=== PATIENT | male | born 1965 | race Caucasian/White ===

== ENCOUNTER 2016-12-25 08:26 | Emergency (ER) | payer MEDICAID ==
[~2016-12-25] VITALS: Wt 70.0 kg
[~2016-12-25 08:26] MED LIST: CIPR500T4 PO; DOCU-144 PO; HYDR-3498 PO; IBUP-1542 PO; METR500T PO; ORPH100T PO
[2016-12-25] MEDS ORDERED: SODI126M NASAL (09:10)
[2016-12-25] MEDS ORDERED: IBUP-1542 PO (09:10)
--- NOTE | 2016-12-25 09:14 | ERD ---
ER Documentation Chief Complaint Date/Time DATE: 12/25/16 TIME: 09:[address] for the past few days intermittent fevers. HPI 51-year-old male complaining of sore throat for 2 days. He has slight cough and nasal congestion. Able to eat and drink. He took Advil for pain, last dose was 4 AM. Denies fever. ROS All systems reviewed and are negative except as per history of present illness. Medications Home Meds Active Scripts Ibuprofen* (Motrin*) 600 Mg Tab, 600 MG PO Q6H Y for PAIN AND OR ELEVATED TEMP, #30 TAB Prov:SEFERINO PATHAK. ROHITH 12/25/16 Sodium Chloride (Saline Nasal Mist) 126 Ml Mist, 2 SPRAY NASAL Q2H Y for NASAL CONGESTION, #1 BOTTLE Prov:SEFERINO PATHAK NP 12/25/16 Orphenadrine Citrate (Norflex) 100 Mg Tablet.sa, 100 MG PO BID for 7 Days, TAB.SA Prov:SWETA BAL 06/04/16 Ibuprofen* (Ibuprofen*) 600 Mg Tablet, 600 MG PO Q6 for 7 Days, TAB Prov:SWETA BAL 06/04/16 Docusate Sodium* (Colace*) 100 Mg Capsule, 100 MG PO TID, #20 Prov:DORETHA HOUSTON PA-C 08/12/15 Hydrocodone Bit-Acetaminophen* ([place]*) 5-325 Mg Tab, 1 TAB PO Q6 Y for PAIN, # 14 TAB Prov:DORETHA HOUSTON PA-C 08/12/15 Hydrocodone Bit-Acetaminophen* ([place]*) 5-325 Mg Tab, 1 TAB PO Q6 Y for PAIN, # 20 TAB Prov:KARAN LINDSAY NP 07/12/15 Ciprofloxacin Hcl* (Ciprofloxacin Hcl*) 500 Mg Tablet, 500 MG PO BID for 10 Days , TAB Prov:KARAN LINDSAY NP 07/12/15 Metronidazole* (Flagyl*) 500 Mg Tablet, 500 MG PO TID for 10 Days, TAB Prov:KARAN LINDSAY NP 07/12/15 Allergies Allergies: Coded Allergies: No Known Drug Allergy (Verified Allergy, Mild, 06/04/16) PMhx/Soc Medical and Surgical Hx: pt denies Medical Hx History of Surgery: No Anesthesia Reaction: No Hx Neurological Disorder: No Hx Respiratory Disorders: No Hx Cardiac Disorders: No Hx Psychiatric Problems: No Hx Miscellaneous Medical Probl: No Hx Alcohol Use: No Hx Substance Use: No Hx Tobacco Use: No Smoking Status: Never smoker Physical Exam Vitals Vital Signs Date Time Temp Pulse Resp B/P Pulse Ox O2 Delivery O2 Flow Rate FiO2 12/25/16 08:34 98.6 66 21 154/85 98 Physical Exam General impression: Well-developed, well-nourished. Alert, oriented, in no acute distress Head: Normocephalic, atraumatic. Eyes: PERRL, EOM normal. Conjunctiva not injected. ENT: Nasal mucosa erythematous and swollen. Oral mucosa normal. Oropharynx mildly erythematous, no swelling or exudates. Neck: Supple, nontender. No lymphanopathy. No nuchal rigidity. Respiration: Normal respiratory effort. Lungs clear to auscultate bilaterally. No wheezes, rales or rhonchi. Cardiovascular: Regular rate and rhythm. No murmurs or extra heart sounds. Abdomen: Abdomen normal to inspection. Nontender. No masses or organomegaly. Bowel sounds normal. Neuro: Mental status normal, speech normal. APPLIQUE SEWER grossly intact. Skin: Normal turgor. No rash or lesions. Psych: Normal mood and affect. Procedures/MDM Patient is afebrile, in no respiratory distress. Lungs are clear to auscultate. I doubt that patient has pneumonia or bronchitis. Likely patient's symptoms are result of viral upper respiratory infection. No sign of strep pharyngitis. Patient appears well, stable for discharge and outpatient management. Medical decision making shared with patient and family. Education provided to patient and family. Patient and family expressed understanding of the plan. Medications on discharge: Saline nasal spray, ibuprofen. Follow-up: Primary care provider in 2-3 days or return to ED if worse. Departure Diagnosis: Primary Impression: URI (upper respiratory infection) URI type: acute nasopharyngitis (common cold) Qualified Code: J00 - Acute nasopharyngitis Condition: Stable Patient Instructions: Adult Self-Care for Colds Ref[facility] Usted se monterroso hecho un examen mdico de control que le indica que no est en germain condicin que requiera tratamiento urgente en el Departamento de Emergencia. Un estudio ms profundo y el tratamiento de zambrano condicin pueden esperar sin ningn riesgo hasta que usted sea atendida/o en el consultorio de zambrano mdico o germain cl sharona. Es responsabilidad suya arreglar germain radha para el seguimiento del steffi. MANEJO DE CONDICIONES NO URGENTES EN EL FUTURO 1) Si usted tiene un mdico de atencin primaria: Usted debera llamar a zambrano mdico de atencin primaria antes de venir al departamento de emergencia. Despus de las horas de consultorio, zambrano doctor o zambrano asociado/a est disponible por telfono. El mdico o enfermero de leelee en el servicio telefnico puede asesorarle por mitch medio para atender el problema, o steffi contrario se puede programar germain radha. 2) Si usted no tiene un mdico de atencin primaria: Llame al mdico o clnica de referencia que aparece abajo eda las horas de consultorio para hacer germain radha para que le vean. CLINICAS: [facility] [phone] [facility] [phone] [facility]. [facility] [phone] [facility] [facility] [phone] [facility]. [place] [id number] [phone] [facility]. [phone] [address] Additional Instructions: Llame al doctor MAANA y jayde germain RADHA PARA DENTRO DE 2-3 GUEVARA.Dgale a la secretaria que nosotros le instruimos hacer esta radha.Avise o llame si zambrano condicin se empeora antes de la radha. Regresa aqui si peor o no mejor. SEFERINO PATHAK NP Dec 25, 2016 09:14
== END 2016-12-25 09:29 | disposition home or self-care (01) ==
LOC: FTE 08:26
DX: J00 Acute nasopharyngitis [common cold] (principal)
CPT/HCPCS: 99283

== ENCOUNTER 2017-01-07 05:45 | Emergency (ER) | payer MEDICAID ==
[~2017-01-07] VITALS: Ht 167.6 cm; Wt 82.1 kg
[~2017-01-07 05:45] MED LIST changes: +SODI126M NASAL
[2017-01-07 05:47] VITALS: Ht 167.6 cm; Wt 82.1 kg
--- NOTE | 2017-01-07 06:45 | ERD ---
ER Documentation Chief Complaint Date/Time DATE: 01/07/17 TIME: 06:38 Chief Complaint sore throat for 15 days not getting better HPI The patient is a 51-year-old male here with 15 days of sore throat that comes and goes. He also reports a slight, non-bothersome cough productive of scant white sputum. He was seen here for same on 12/25/16 and was given Tylenol for his sore throat pain. He stated that he took the Tylenol as prescribed with good relief. He ran out of Tylenol and wishes more. He denies any international travel. Reports sick contacts in the home with same symptoms. Denies fever, chills, nausea, vomiting, diarrhea, chest pain, difficulty breathing, shortness of breath, flank pain, dysuria, headache, earache, difficulty swallowing, drooling, change in voice, neck soreness or stiffness, photophobia, dizziness, or lightheadedness. ROS All systems reviewed and are negative except as per history of present illness. Medications Home Meds Active Scripts Ibuprofen* (Motrin*) 600 Mg Tab, 600 MG PO Q8, #30 TAB Prov:SHIRA MCCARTHY NP 01/07/17 Acetaminophen* (Tylenol*) 325 Mg Tablet, 2 TAB PO Q6 Y for PAIN AND OR ELEVATED TEMP, #20 TAB Prov:SHIRA MCCARTHY NP 01/07/17 Ibuprofen* (Motrin*) 600 Mg Tab, 600 MG PO Q6H Y for PAIN AND OR ELEVATED TEMP, #30 TAB Prov:SEFERINO PATHAK. WELLNESS EDUCATOR 12/25/16 Sodium Chloride (Saline Nasal Mist) 126 Ml Mist, 2 SPRAY NASAL Q2H Y for NASAL CONGESTION, #1 BOTTLE Prov:SEFERINO PATHAK. WELLNESS EDUCATOR 12/25/16 Orphenadrine Citrate (Norflex) 100 Mg Tablet.sa, 100 MG PO BID for 7 Days, TAB.SA Prov:SWETA BAL 06/04/16 Ibuprofen* (Ibuprofen*) 600 Mg Tablet, 600 MG PO Q6 for 7 Days, TAB Prov:SWETA BAL 06/04/16 Docusate Sodium* (Colace*) 100 Mg Capsule, 100 MG PO TID, #20 Prov:DORETHA HOUSTON PA-C 08/12/15 Hydrocodone Bit-Acetaminophen* ([place]*) 5-325 Mg Tab, 1 TAB PO Q6 Y for PAIN, # 14 TAB Prov:DORETHA HOUSTON PA-C 08/12/15 Hydrocodone Bit-Acetaminophen* ([place]*) 5-325 Mg Tab, 1 TAB PO Q6 Y for PAIN, # 20 TAB Prov:KARAN LINDSAY NP 07/12/15 Ciprofloxacin Hcl* (Ciprofloxacin Hcl*) 500 Mg Tablet, 500 MG PO BID for 10 Days , TAB Prov:KARAN LINDSAY WELLNESS EDUCATOR 07/12/15 Metronidazole* (Flagyl*) 500 Mg Tablet, 500 MG PO TID for 10 Days, TAB Prov:KARAN LINDSAY WELLNESS EDUCATOR 07/12/15 Allergies Allergies: Coded Allergies: No Known Drug Allergy (Verified Allergy, Mild, 06/04/16) PMhx/Soc Medical and Surgical Hx: pt denies Medical Hx, pt denies Surgical Hx History of Surgery: No Anesthesia Reaction: No Hx Neurological Disorder: No Hx Respiratory Disorders: No Hx Cardiac Disorders: No Hx Psychiatric Problems: No Hx Miscellaneous Medical Probl: No Hx Alcohol Use: No Hx Substance Use: No Hx Tobacco Use: No Smoking Status: Never smoker Physical Exam Vitals Vital Signs Date Time Temp Pulse Resp B/P Pulse Ox O2 Delivery O2 Flow Rate FiO2 01/07/17 05:47 97.2 60 18 183/98 94 Physical Exam INITIAL VITAL SIGNS: Reviewed by me, afebrile, no tachycardia GENERAL: Alert. Well developed and well nourished. No respiratory distress. No acute distress. Nontoxic appearing. HEAD: Head is normocephalic. Atraumatic. EYES: EOMI. No scleral icterus. No conjunctival injection. No clear purulent drainage. ENT: External ears, nose, and mouth normal. Ear canals clear. Tympanic membranes pearly/kwon, without erythema/bulging/effusion. Nasal passages patent and without rhinorrhea. Tonsils +3 and with moderate erythema. No exudates. Airway patent. Uvula midline. Moist mucous membranes. NECK: Supple. Full range of motion. Trachea midline. No meningismus. No lymphadenopathy. RESPIRATORY: No tachypnea. Clear to auscultation bilaterally. No wheezing, rales , or rhonchi. CV: Regular rate and rhythm. No murmurs, rubs, or gallops ABDOMEN: Soft, non-distended, non-tender. No guarding. No rebound. No masses. Bowel sounds normal in all quadrants. BACK: No CVA tenderness. Full ROM. EXTREMITIES: No obvious deformity. No clubbing or cyanosis. No edema. SKIN: Warm and dry. No diaphoresis. No obvious rashes or lesions. NEUROLOGIC: Alert and oriented x 3. Appropriate. Face is symmetric. Speech is normal. Moves all extremities equally. Results 24 hrs Current Medications Medications (Trade) Dose Ordered Sig/Juan Route PRN Reason Start Time Stop Time Status Last Admin Dose Admin Dexamethasone (Decadron) 10 mg ONCE ONCE IM 01/07/17 07:00 01/07/17 07:01 DC 01/07/17 07:06 Procedures/MDM Nursing Notes Reviewed Previous Medical Records requested via [employer]. EMERGENCY DEPARTMENT COURSE / MEDICAL DECISION MAKING: The patient comes to the ED secondary to intermittent sore throat 15 days. Differential diagnosis upon initial evaluation includes but is not limited to: Bacterial pharyngitis, viral pharyngitis, viral syndrome, URI, pneumonia, sepsis , meningitis, mono, peritonsillar abscess, epiglottitis, and others. At this time, the patient's history of present illness and physical exam findings are most consistent with viral pharyngitis. He does not have any peritonsillar exudates, nor does he have any clinical evidence of peritonsillar abscess or epiglottitis. He does not have a raspy voice nor does he have difficulty swallowing. His uvula is midline and his airway is patent. Tonsils are symmetrical and +3. His breathing is even and unlabored. His lungs are clear to auscultation bilaterally. He does not have any lymphadenopathy, neck pain, neck soreness, or neck stiffness. He does not have a headache or photophobia. He is afebrile. As such, I have low suspicion at this time for bacterial pharyngitis, pneumonia, sepsis, meningitis, mono, peritonsillar abscess, epiglottitis, or any other serious cause of the patient's symptoms. Final impression: Pharyngitis, likely viral The patient was treated with Decadron 10 mg IM for sore throat and moderate tonsillar erythema. Based on patient's history of present illness and physical examination the decision was made to discharge. The patient was re-evaluated after ED treatment and stabilizing measures, and symptoms have improved. There is no evidence of life threatening injuries or illnesses at this time. The patient's repeat physical exam was benign. On re-examination, patient resting in no distress, stable vital signs, reports feeling better and safe for discharge with outpatient follow up with PMD in 1-2 days. Patient given return precautions. Patient verbalized understanding and agreed to return precautions. He will return immediately for new or worsening symptoms. He will get plenty of fluids and plenty of rest. He will perform good hand hygiene. He will gargle with warm saltwater. He will take his medications as prescribed. Patient's blood pressure was elevated but appears stable without evidence of hypertensive emergency, end organ damage, chest pain or shortness of breath. The patient was counseled about the risks of untreated hypertension and urged to pursue outpatient monitoring and therapy in 2-3 days with their primary care physician. Prescriptions Tylenol Ibuprofen SHIRA MCCARTHY NP Jan 07, 2017 06:45
[2017-01-07] MEDS ORDERED: DEXAMETHASONE 10 MG/ML 1 ML INJ IM ONE (07:00)
[2017-01-07] MEDS ORDERED: ACET325T33 PO (07:03)
[2017-01-07] MEDS ORDERED: IBUP-1542 PO (07:04)
== END 2017-01-07 07:26 | disposition home or self-care (01) ==
LOC: FTE 05:45
DX: J02.9 Acute pharyngitis, unspecified (principal)
CPT/HCPCS: 96372; J1100; Z7502

== ENCOUNTER 2017-01-09 05:48 | Emergency (ER) | payer MEDICAID ==
[~2017-01-09] VITALS: Ht 162.6 cm; Wt 81.8 kg
[~2017-01-09 05:48] MED LIST changes: +ACET325T33 PO
[2017-01-09 05:57] VITALS: Ht 162.6 cm; Wt 81.8 kg
[2017-01-09] MEDS ORDERED: GLYCERIN (ADULT) SUPP PR ONE (07:00)
--- NOTE | 2017-01-09 08:02 | RADRPT ---
PROCEDURE: XR Abdomen. CLINICAL INDICATION: Abdominal pain TECHNIQUE: Two views of the abdomen are available for review. COMPARISON: 01/18/2014 FINDINGS: The bowel gas pattern is normal. There is no evidence of obstruction. A small normal amount of stool is seen within the right colon. There is no evidence for significant constipation. There are no ab normal calcifications overlying the urinary tracts. The osseous structures are remarkable for degene rative spondylosis of the spine. IMPRESSION: 1. Unremarkable abdomen x-ray series. 2. No evidence for significant constipation. RPTAT: PP .Abelardo Heath MD, Date Time Electronically viewed and signed by .Abelardo Heath MD, on 01/09/2017 08:02 .B/
[2017-01-09] MEDS ORDERED: GLYC1SUP92 PR (08:10)
[2017-01-09] MEDS ORDERED: POLY17PO6 PO (08:10)
--- NOTE | 2017-01-09 08:46 | ERD ---
DATE OF SERVICE: HISTORY OF PRESENT ILLNESS: The patient is a 51-year-old male coming in complaining of decreased jasen wel movements and constipation for the last 2 days. He states he has had this in the past and it monterroso s been constipation. He has not taken medications for the symptoms. He is unsure if he has been pa ssing gas. He describes some generalized abdominal pain. He denies any abdominal surgery. No vomi ting, no fevers, no back pain, no testicular pain, no change in urination. PAST MEDICAL HISTORY: Denies medical problems. ALLERGIES TO MEDICATIONS: Denies. SURGICAL HISTORY: Denies. SOCIAL HISTORY: Denies. REVIEW OF SYSTEMS: A 12-point review of systems was done. Refer to HPI for positives, all other sy stems negative. PHYSICAL EXAMINATION VITAL SIGNS: Temperature is 98.7, pulse 60, blood pressure is 156/92, respiratory rate 16, O2 sat 9 6% on room air. Pain intensity is 7/10. GENERAL: The patient is well-appearing, well-nourished, no acute distress. HEART: Regular rate and rhythm. No murmurs, clicks, rubs or gallops. No S3 or S4. CHEST: Clear to auscultation bilaterally. There are no rales, wheezes or rhonchi. HEENT: Atraumatic. Conjunctivae are pink. Pupils equal, round, and reactive to light. There is no s cleral icterus. Tympanic membranes clear bilaterally. Oropharynx clear. No nystagmus or photophobia . ABDOMEN: Soft, nontender and nondistended. Good bowel sounds. No rebound or guarding. No gross lee tonitis. No gross organomegaly or masses. No Jacobs sign or McBurney point tenderness. SKIN: There is no apparent rash or petechia. The skin is warm and dry. BACK: No midline or flank tenderness. EMERGENCY ROOM COURSE: The patient had a 1-view KUB done in the ER which showed unremarkable abdomi nal x-rays. No evidence for significant constipation. Patient was given a Fleets enema in the ER. DIAGNOSIS: Constipation. MEDICAL DECISION MAKING: I have low suspicion for small-bowel obstruction or acute abdominal emerge ncy. Patient's exam is nonconcerning. The patient is nontoxic appearing. I have low suspicion for nephrolithiasis. All other questions answered at time of discharge. Discharge summary given at th e time of departure. Patient was given MiraLax and glycerin suppositories for symptoms. Dictated By: NOAH THOMSON for PRISCILLA OROZCO/АНДРЕЙ Conf#: [id number] DID#: [id number]
== END 2017-01-09 08:25 | disposition home or self-care (01) ==
LOC: FTE 05:48
DX: K59.00 Constipation, unspecified (principal)
CPT/HCPCS: 74000; Z7502; Z7610

== ENCOUNTER 2017-01-10 19:06 | Emergency (ER) | payer MEDICAID ==
[~2017-01-10] VITALS: Ht 167.6 cm; Wt 80.3 kg
[~2017-01-10 19:06] MED LIST changes: +GLYC1SUP92 PR; +POLY17PO6 PO
[2017-01-10 19:20] VITALS: Ht 167.6 cm; Wt 80.3 kg
--- NOTE | 2017-01-10 21:11 | ERA ---
ER Documentation Chief Complaint Date/Time DATE: 01/10/17 TIME: 21:11 Chief Complaint diffuse abd pain x 3 days w/ fever, seen here 3 days ago same c/o HPI The patient is a 51-year-old male, presenting to the ER because of diffuse abdominal intermittently for 7 days, worse for the last 3 days. He is also complaining of subjective fever, nasal congestion, nasal discharge, sore throat , general body pain. He already had 2 visits to the ER on January 07 and January 09, 2017. The abdominal pain is 8/10, worse with constipation and dysuria. He is currently taking antibiotic for unclear reason. He denies chills, neck pain, chest pain, dyspnea. The abdominal pain is diffuse. He complains of nausea and vomiting mostly mucus. He does not smoke nor drink Past medical/ surgical history: None ROS All systems reviewed and are negative except as per history of present illness. Medications Home Meds Active Scripts Polyethylene Glycol* (Miralax*) 17 Gm Powd.pack, 17 GM PO DAILY, #7 Prov:GAURAV CASANOVA MD 01/11/17 Ibuprofen* (Motrin*) 600 Mg Tab, 600 MG PO Q6H Y for PAIN AND OR ELEVATED TEMP, #30 TAB Prov:GAURAV CASANOVA MD 01/11/17 Oseltamivir Phosphate* (Tamiflu*) 75 Mg Capsule, 75 MG PO BID for 5 Days, CAP Prov:GAURAV CASANOVA MD 01/11/17 Discontinued Scripts Glycerin* (Glycerin (Adult)*) 1 Each Supp.rect, 1 EACH CO DAILY Y for CONSTIPATION, #30 SUPP.RECT Prov:AMY VICK PA-C 01/09/17 Polyethylene Glycol* (Miralax*) 17 Gm Powd.pack, 17 GM PO DAILY, #7 Prov:AMY VICK PA-C 01/09/17 Ibuprofen* (Motrin*) 600 Mg Tab, 600 MG PO Q8, #30 TAB Prov:SHIRA MCCARTHY, AUTO DRIVER 01/07/17 Acetaminophen* (Tylenol*) 325 Mg Tablet, 2 TAB PO Q6 Y for PAIN AND OR ELEVATED TEMP, #20 TAB Prov:SHIRA MCCARTHY, AUTO DRIVER 01/07/17 Ibuprofen* (Motrin*) 600 Mg Tab, 600 MG PO Q6H Y for PAIN AND OR ELEVATED TEMP, #30 TAB Prov:SEFERINO PATHAK. AUTO DRIVER 12/25/16 Sodium Chloride (Saline Nasal Mist) 126 Ml Mist, 2 SPRAY NASAL Q2H Y for NASAL CONGESTION, #1 BOTTLE Prov:SEFERINO PATHAK. ROHITH 12/25/16 Orphenadrine Citrate (Norflex) 100 Mg Tablet.sa, 100 MG PO BID for 7 Days, TAB.SA Prov:SWETA BAL 06/04/16 Ibuprofen* (Ibuprofen*) 600 Mg Tablet, 600 MG PO Q6 for 7 Days, TAB Prov:SWETA BAL 06/04/16 Docusate Sodium* (Colace*) 100 Mg Capsule, 100 MG PO TID, #20 Prov:DORETHA HOUSTON PA-C 08/12/15 Hydrocodone Bit-Acetaminophen* (Garrison*) 5-325 Mg Tab, 1 TAB PO Q6 Y for PAIN, # 14 TAB Prov:DORETHA HOUSTON PA-C 08/12/15 Hydrocodone Bit-Acetaminophen* (Garrison*) 5-325 Mg Tab, 1 TAB PO Q6 Y for PAIN, # 20 TAB Prov:KARAN LINDSAY NP 07/12/15 Ciprofloxacin Hcl* (Ciprofloxacin Hcl*) 500 Mg Tablet, 500 MG PO BID for 10 Days , TAB Prov:KARAN LINDSAY NP 07/12/15 Metronidazole* (Flagyl*) 500 Mg Tablet, 500 MG PO TID for 10 Days, TAB Prov:KARAN LINDSAY NP 07/12/15 Allergies Allergies: Coded Allergies: No Known Drug Allergy (Verified Allergy, Mild, 01/10/17) PMhx/Soc History of Surgery: No Anesthesia Reaction: No Hx Neurological Disorder: No Hx Respiratory Disorders: No Hx Cardiac Disorders: No Hx Psychiatric Problems: No Hx Miscellaneous Medical Probl: No Hx Alcohol Use: No Hx Substance Use: No Hx Tobacco Use: No Physical Exam Vitals Vital Signs Date Time Temp Pulse Resp B/P Pulse Ox O2 Delivery O2 Flow Rate FiO2 01/11/17 00:20 68 18 114/69 97 Room Air 01/10/17 22:37 99.5 71 17 128/97 96 Room Air 01/10/17 21:13 102.0 01/10/17 19:20 102.4 94 20 190/103 97 Physical Exam Const: No acute distress. Head: Atraumatic. Eyes: Normal Conjunctiva. ENT: Normal External Ears, Nose and Mouth. Neck: Full range of motion. No meningismus. Resp: Clear to auscultation bilaterally. Cardio: Regular rate and rhythm, no murmurs. Abd: Soft, non distended, normal bowel sounds, diffuse and moderate abdominal tenderness, more tenderness at the right lower quadrant. No rigidity , rebound or CVA tenderness Skin: No petechiae or rashes. Back: No midline or flank tenderness. Ext: No cyanosis, or edema. Neur: Awake and alert. No focal deficit Psych: Normal Mood and Affect. Result Diagram: 01/10/17212901/10/172129 Results 24 hrs Laboratory Tests Test 01/10/17 21:30 01/10/17 22:38 01/10/17 23:54 Activated Partial Thromboplast Time 35.6Sec Alanine Aminotransferase (ALT/SGPT) 69IU/L Albumin 4.3g/dl Albumin/Globulin Ratio 1.10 Alkaline Phosphatase 123IU/L Anion Gap 17 Aspartate Amino Transf (AST/SGOT) 87IU/L Basophils # 0.010^3/ul Basophils % 0.3% Blood Urea Nitrogen 10mg/dl Calcium Level 8.9mg/dl Carbon Dioxide Level 25mmol/L Chloride Level 100mmol/L Creatinine 0.80mg/dl Direct Bilirubin 0.00mg/dl Eosinophils # 0.010^3/ul Eosinophils % 0.3% Globulin 3.90g/dl Glucose Level 122mg/dl Hematocrit 43.9% Hemoglobin 15.3g/dl INR International Normalized Ratio 1.07 Indirect Bilirubin 0.8mg/dl Lactic Acid Level 1.0mmol/L 0.7mmol/L Lipase 48U/L Lymphocytes # 1.010^3/ul Lymphocytes % 12.6% Mean Corpuscular Hemoglobin 29.5pg Mean Corpuscular Hemoglobin Concent 34.9g/dl Mean Corpuscular Volume 84.7fl Mean Platelet Volume 10.3fl Monocytes # 0.610^3/ul Monocytes % 8.2% Neutrophils # 6.010^3/ul Neutrophils % 78.3% Nucleated Red Blood Cells # 0.010^3/ul Nucleated Red Blood Cells % 0.0/100WBC Platelet Count 82968^3/UL Potassium Level 4.1mmol/L Prothrombin Time 13.9Sec Prothrombin Time Ratio 1.1 Red Blood Count 5.1810^6/ul Red Cell Distribution Width 13.0% Sodium Level 138mmol/L Total Bilirubin 0.8mg/dl Total Protein 8.2g/dl Troponin I < 0.012ng/ml White Blood Count 7.610^3/ul Bedside Urine Blood 1+ Bedside Urine Glucose (UA) Negative Bedside Urine Ketones (LAB) 2+ Bedside Urine Leukocyte Esterase (L Negative Bedside Urine Nitrite (LAB) Negative Bedside Urine Protein (LAB) 3+ Bedside Urine pH (LAB) 6.5 Current Medications Medications (Trade) Dose Ordered Sig/Juan Route PRN Reason Start Time Stop Time Status Last Admin Dose Admin Acetaminophen (Tylenol Supp) 650 mg ONCE ONCE CO 01/10/17 21:30 01/10/17 21:31 DC 01/10/17 21:43 Morphine Sulfate (morphine) 4 mg ONCE STAT IV 01/10/17 21:18 01/10/17 21:20 DC 01/10/17 21:43 Ondansetron HCl (Zofran Inj) 4 mg ONCE STAT IV 01/10/17 21:18 01/10/17 21:20 DC 01/10/17 21:43 Procedures/[place] [id number] Radiology Main Line: [phone] DIAGNOSTIC IMAGING REPORT Patient: ARVIN CASTILLO : 1965 Age: 51 Sex: M MR #: [id number] DOS: 01/10/178 Ordering MD: GAURAV CASANOVA MD Location: E/R Room/Bed: PROCEDURE: XR Chest AP portable CLINICAL INDICATION: Possible sepsis TECHNIQUE: An AP portable radiograph of the chest was submitted. COMPARISON: 01/16/2014 FINDINGS: Support Hardware: None Cardiovascular: The cardiovascular silhouette appears unremarkable. Lung Gutierrez: The lung gutierrez appear clear with no nodule, alveolar infiltrate, for a interstitial prominence evident. Pleural Spaces: No pneumothorax or pleural effusion is identified. Osseous Structures: Mild degenerative spine changes are noted. Soft Tissues: The soft tissues appear generous. IMPRESSION: Stable and unremarkable chest. Physician Natalia Date Time Electronically viewed and signed by Physician Natalia on 01/10/2017 21:46 RH/ CC: GAURAV CASANOVA MD [place] [id number] Radiology Main Line: [phone] DIAGNOSTIC IMAGING REPORT Patient: ARVIN CASTILLO : 1965 Age: 51 Sex: M MR #: [id number] DOS: 01/10/172117 Ordering MD: GAURAV CASANOVA MD Location: E/R Room/Bed: PROCEDURE: CT abdomen and pelvis without intravenous contrast. CLINICAL INDICATION: Pain. TECHNIQUE: CT of the abdomen/pelvis was performed utilizing axial images with reconstructions in sagittal and coronal planes. The administered radiation dose is CTDI 15.2 mGy, DLP 855 mGy-cm. COMPARISON: 08/12/2015 FINDINGS: Visualized Chest: The visualized lung bases are clear. Abdomen: The spleen, pancreas, gallbladder,and adrenal glands are unremarkable. The liver is markedly, diffusely decreased in attenuation, compatible with hepatic steatosis. The kidneys are without hydronephrosis. No definite urinary calculi are seen. There is no evidence of bowel obstruction. The appendix is normal. No intra- abdominal free air is seen. Diverticula are noted along the sigmoid colon without evidence of diverticulitis. There is no evidence of intra-abdominal adenopathy or free fluid. Pelvis: A moderate size fat-containing right inguinal hernia. The urinary bladder and prostate are unremarkable. There is no pelvic adenopathy or free fluid. Osseous structures: Unremarkable. IMPRESSION: No acute findings. Marked hepatic steatosis. Sigmoid colonic diverticulosis. Moderate sized fat-containing right inguinal hernia. RPTAT: HIKT .Bentley Ramos MD, Date Time Electronically viewed and signed by .Bentley Ramos MD, MD on 01/10/2017 23:06 .T/ CC: GAURAV CASANOVA MD EKG: Read by emergency physician Rate/Rhythm: Normal Sinus Rhythm 86 beats/min QRS, ST, T-waves: No ST elevation, no T inversion, nonspecific T abnormality Impression: Abnormal EKG MEDICAL MAKING DECISION: The patient is a 51-year-old male, presenting with influenza-like illness, abdominal pain of unclear etiology, most likely due to constipation and right inguinal hernia. The differential diagnoses considered include but are not limited to incarcerated/strangulated inguinal hernia , pneumonia, cystitis, cholelithiasis, cholecystitis, cystitis, pancreatitis, hepatitis, gastritis, peptic ulcer disease, gastric ulcer, appendicitis, diverticulitis, cholangitis, choledocholithiasis, partial small bowel obstruction. Departure Diagnosis: Primary Impression: Abdominal pain Additional Impressions: Influenza-like illness Constipation Right inguinal hernia Condition: Good Comments He was discharged with Tamiflu, Motrin, MiraLAX and advised to return in 8 hours for reevaluation, sooner if any concern The patient's blood pressure was elevated (>120/80) but appears stable without evidence of hypertension emergency or urgency. The patient was counseled about the risks of hypertension and urged to pursue outpatient monitoring and therapy within a week with their primary care physician. GAURAV CASANOVA MD Jan 10, 2017 21:11
[2017-01-10] MEDS ORDERED: ONDANSETRON 4 MG INJ IV STA (21:18)
[2017-01-10] MEDS ORDERED: morphine 4 MG/ML VIAL IV STA (21:18)
[2017-01-10] MEDS ORDERED: ACETAMINOPHEN 650 MG SUPP PR ONE (21:30)
[2017-01-10 21:44] LABS: ADD SCAN DIFF NO
[2017-01-10 21:46] LABS: BASOPHILS % 0.3 % (0.0-2.0); EOSINOPHILS % 0.3 % (0.0-7.0); HEMATOCRIT 43.9 % (42.0-52.0); HEMOGLOBIN 15.3 g/dl (14.0-18.0); LYMPHOCYTES % 12.6 % (15.0-51.0); MEAN CORPUSCULAR HEMOGLOBIN 29.5 pg (29.0-33.0); MEAN CORPUSCULAR HGB CONC 34.9 g/dl (32.0-37.0); MEAN CORPUSCULAR VOLUME 84.7 fl (82.0-101.0); MEAN PLATELET VOLUME 10.3 fl (7.4-10.4); MONOCYTE # 0.6 10^3/ul (0.3-0.9); MONOCYTES % 8.2 % (0.0-11.0); NEUTROPHILS % 78.3 % (39.0-77.0); PLATELET COUNT 234 10^3/UL (140-415); RED BLOOD COUNT 5.18 10^6/ul (4.70-6.10); WHITE BLOOD COUNT 7.6 10^3/ul (4.8-10.8)
--- NOTE | 2017-01-10 21:46 | RADRPT ---
PROCEDURE: XR Chest AP portable CLINICAL INDICATION: Possible sepsis TECHNIQUE: An AP portable radiograph of the chest was submitted. COMPARISON: 01/16/2014 FINDINGS: Support Hardware: None Cardiovascular: The cardiovascular silhouette appears unremarkable. Lung Guevara: The lung guevara appear clear with no nodule, alveolar infiltrate, for a interstitial pr ominence evident. Pleural Spaces: No pneumothorax or pleural effusion is identified. Osseous Structures: Mild degenerative spine changes are noted. Soft Tissues: The soft tissues appear generous. IMPRESSION: Stable and unremarkable chest. Physician Natalia Date Time Electronically viewed and signed by Nadja York Physician on 01/10/2017 21:46 RH/
[2017-01-10 21:55] LABS: ALBUMIN 4.3 g/dl (3.3-4.9); CHLORIDE 100 mmol/L (97-110)
[2017-01-10 21:56] LABS: POTASSIUM 4.1 mmol/L (3.5-5.1); SODIUM 138 mmol/L (135-144)
[2017-01-10 21:58] LABS: ANION GAP 17 (8-16); ASPARTATE AMINO TRANSFERASE 87 IU/L (15-46); BILIRUBIN,INDIRECT 0.8 mg/dl (0-1.1); BILIRUBIN,TOTAL 0.8 mg/dl (0.2-1.3); CARBON DIOXIDE 25 mmol/L (21-31); TOTAL PROTEIN 8.2 g/dl (6.1-8.1)
[2017-01-10 21:59] LABS: ALANINE AMINOTRANSFERASE 69 IU/L (13-69); ALKALINE PHOSPHATASE 123 IU/L (42-121); BLOOD UREA NITROGEN 10 mg/dl (7-20); CALCIUM 8.9 mg/dl (8.4-10.2); GLUCOSE 122 mg/dl (70-220)
[2017-01-10 22:10] LABS: INR 1.07; PROTIME 13.9 Sec (12.2-14.2); PT RATIO 1.1
[2017-01-10 22:11] LABS: PARTIAL THROMBOPLASTIN TIME 35.6 Sec (25.0-35.0); TROPONIN-I < 0.012 ng/ml (0.00-0.12)
[2017-01-10 22:37] VITALS: TEMP 99.5
[2017-01-10 22:37] LABS: URINE BLOOD (Dip) POC 1+ (NEGATIVE)
--- NOTE | 2017-01-10 23:07 | RADRPT ---
PROCEDURE: CT abdomen and pelvis without intravenous contrast. CLINICAL INDICATION: Pain. TECHNIQUE: CT of the abdomen/pelvis was performed utilizing axial images with reconstructions in s agittal and coronal planes. The administered radiation dose is CTDI 15.2 mGy, DLP 855 mGy-cm. COMPARISON: 08/12/2015 FINDINGS: Visualized Chest: The visualized lung bases are clear. Abdomen: The spleen, pancreas, gallbladder,and adrenal glands are unremarkable. The liver is markedly, dif fusely decreased in attenuation, compatible with hepatic steatosis. The kidneys are without hydronephrosis. No definite urinary calculi are seen. There is no evidence of bowel obstruction. The appendix is normal. No intra-abdominal free air is seen. Diverticula are noted along the sigmoid colon without evidence of diverticulitis. There is no evidence of intra-abdominal adenopathy or free fluid. Pelvis: A moderate size fat-containing right inguinal hernia. The urinary bladder and prostate are unremark able. There is no pelvic adenopathy or free fluid. Osseous structures: Unremarkable. IMPRESSION: No acute findings. Marked hepatic steatosis. Sigmoid colonic diverticulosis. Moderate sized fat-containing right inguinal hernia. RPTAT: HIKT .Bentley Ramos MD, MD Date Time Electronically viewed and signed by .Bentley Ramos MD, MD on 01/10/2017 23:06 .T/
[2017-01-11] MEDS ORDERED: POLY17PO6 PO (00:12)
[2017-01-11] MEDS ORDERED: OSLT75C PO (00:12)
[2017-01-11] MEDS ORDERED: IBUP-1542 PO (00:12)
[2017-01-11 00:20] VITALS: BP 114/69; PULSE 68; RESP 18
== END 2017-01-11 00:21 | disposition home or self-care (01) ==
LOC: E/R 19:06
DX: R10.31 Right lower quadrant pain (principal); R50.9 Fever, unspecified; R09.81 Nasal congestion; J02.9 Acute pharyngitis, unspecified; K59.00 Constipation, unspecified; K40.90 Unilateral inguinal hernia, without obstruction or gangrene, not specified as recurrent; R11.2 Nausea with vomiting, unspecified
CPT/HCPCS: 36415; 71010; 74176; 80053; 81003; 83605; 83690; 84484; 85025; 85610; 85730; 87040; 87086; 93005; 96374; 96375; J2270; J2405; Z7502; Z7610

== ENCOUNTER 2017-03-30 16:25 | Emergency (ER) | payer MEDICAID ==
[~2017-03-30] VITALS: Ht 165.1 cm; Wt 78.0 kg
[~2017-03-30 16:25] MED LIST changes: -ACET325T33 PO; -CIPR500T4 PO; -DOCU-144 PO; -GLYC1SUP92 PR; -HYDR-3498 PO; -METR500T PO; -ORPH100T PO; +OSLT75C PO; -SODI126M NASAL
[2017-03-30 16:29] VITALS: Ht 165.1 cm; Wt 78.0 kg
[2017-03-30 17:41] LABS: URINE BLOOD (Dip) POC Negative (NEGATIVE)
[2017-03-30 17:47] LABS: ADD UMIC YES; URINE BILIRUBIN (Dip) NEGATIVE (NEGATIVE); URINE BLOOD (Dip) NEGATIVE (NEGATIVE); URINE COLOR LT. YELLOW (YELLOW); URINE GLUCOSE (Dip) NEGATIVE (NEGATIVE); URINE KETONES (Dip) NEGATIVE (NEGATIVE); URINE LEUKOCYTE ESTERASE (Dip) NEGATIVE (NEGATIVE); URINE NITRITE (Dip) NEGATIVE (NEGATIVE); URINE TOTAL PROTEIN (Dip) 2+ (NEGATIVE); URINE UROBILINOGEN (Dip) 0.2 E.U./dL (0.1-1.0)
[2017-03-30 18:10] LABS: MUCUS,URINE FEW; URINE RBCS NONE SEEN /HPF (0)
--- NOTE | 2017-03-30 18:47 | ERD ---
ER Documentation Chief Complaint Date/Time DATE: 03/30/17 TIME: 18:29 Chief Complaint PAINFUL URINATION X 2 WEEKS HPI This pleasant Malian-speaking male presents to the emergency department with painful urination 2 weeks. Patient reports that he has difficulty initiating his urine stream, and that urine dribbles after he has completed voiding. Patient denies any penile discharge, or testicular pain. Patient denies hematuria, fever, or history of benign prostate hypertrophy. Patient is in a monogamous relationship, denies extramarital affairs. ROS All systems reviewed and are negative except as per history of present illness. Medications Home Meds Active Scripts Ciprofloxacin Hcl* (Ciprofloxacin Hcl*) 500 Mg Tablet, 500 MG PO BID for 7 Days , TAB Prov:MINNIE,EROS 03/30/17 Polyethylene Glycol* (Miralax*) 17 Gm Powd.pack, 17 GM PO DAILY, #7 Prov:GAURAV CASANOVA MD 01/11/17 Ibuprofen* (Motrin*) 600 Mg Tab, 600 MG PO Q6H Y for PAIN AND OR ELEVATED TEMP, #30 TAB Prov:GAURAV CASANOVA MD 01/11/17 Oseltamivir Phosphate* (Tamiflu*) 75 Mg Capsule, 75 MG PO BID for 5 Days, CAP Prov:GAURAV CASANOVA MD 01/11/17 Allergies Allergies: Coded Allergies: No Known Drug Allergy (Verified Allergy, Mild, 01/10/17) PMhx/Soc Medical and Surgical Hx: pt denies Medical Hx, pt denies Surgical Hx History of Surgery: No Anesthesia Reaction: No Hx Neurological Disorder: No Hx Respiratory Disorders: No Hx Cardiac Disorders: No Hx Psychiatric Problems: No Hx Miscellaneous Medical Probl: No Hx Alcohol Use: No Hx Substance Use: No Hx Tobacco Use: No Smoking Status: Never smoker Physical Exam Vitals Vitals stable, triage notes reviewed Physical Exam Const: No acute distress Head: Atraumatic Eyes: Normal Conjunctiva, PERRLA, EOMI ENT: Normal External Ears, Nose and Mouth. Mucous membranes moist Neck: Full range of motion.. Resp: Chest rises and falls symmetrically, clear to auscultation bilaterally, no respiratory distress Cardio: Abd: Soft, non tender, non distended. No bladder tenderness, no CVA tenderness Skin: Back: No midline or flank tenderness Ext: Neur: Awake and alert Psych: Normal Mood and Affect Results 24 hrs Laboratory Tests Test 03/30/17 17:38 03/30/17 17:42 Urine Color LT. YELLOW Urine Clarity CLEAR Urine pH 6.0 Urine Specific [place] >=1.030 Urine Ketones NEGATIVE Urine Nitrite NEGATIVE Urine Bilirubin NEGATIVE Urine Urobilinogen 0.2 E.U./dL Urine Leukocyte Esterase NEGATIVE Urine Microscopic RBC NONE SEEN/HPF Urine Microscopic WBC 0-2/HPF Urine Mucus FEW Urine Hemoglobin NEGATIVE Urine Glucose NEGATIVE% Urine Total Protein 2+ Chlamydia trachomatis RNA (TMA) NOT DETECTED Chlamydia/GC Comment SEE NOTE Neisseria gonorrhoeae RNA (TMA) NOT DETECTED Bedside Urine pH (LAB) 6.0 Bedside Urine Protein (LAB) 3+ Bedside Urine Glucose (UA) Negative Bedside Urine Ketones (LAB) Negative Bedside Urine Blood Negative Bedside Urine Nitrite (LAB) Negative Bedside Urine Leukocyte Esterase (L Negative Procedures/MDM This pleasant 52-year-old male patient reports 2 week history of painful urination, difficulty initiating urine stream and dribbling after urinating this complaint, patient denies any hematuria, penile discharge, or extramarital affairs. Patient denies fever, back pain, nausea or vomiting. Pyelonephritis, urinary tract infection suspected, urinalysis shows no evidence of infection, positive for proteinuria. Blood pressure 145 over 81, hypertension is unlikely because of proteinuria, glomeruli or damage is unlikely, dysuria likely from prostatitis, patient has no signs of sepsis, fever, chills, no evidence of obstruction, patient able to urinate freely while in emergency department. Patient will be treated with Cipro 500 mg twice daily 7 days, increase fluids, increase rest, return to emergency room for worsening of symptoms, inability to void, fever, hematuria, back pain. I feel the patient is stable for discharge and outpatient management by primary care physician. I have discussed results, examination findings, the treatment plan with the patient and family present prior to discharge. Indications for emergent reevaluation, side effects of medication were also discussed. All questions were answered. Patient verbalizes understanding and agrees with plan of care. Departure Diagnosis: Primary Impression: Dysuria Condition: Good Patient Instructions: Dysuria, Uncertain Cause (Adult) Additional Instructions: Thank you for for coming to [facility] for your care today. Please ask your nurse or provider if you have questions about your care today and do not leave until all your questions have been answered. Please use any medications given as directed and follow-up with your doctor (or the doctor you were referred to) in the next 2-3 days. If you do not have a primary care doctor you [place] [facility] [place] You may also use motrin and tylenol as needed for fever and/or pain unless instructed otherwise by your provider or nurse. Indications for more urgent follow-up have been discussed, but you may return to the Emergency Department at ANY time for any worrisome or worsening symptoms. If you have abdominal pain, please know that no test or exam you received is perfect and you should follow up within 8 hours for continued pain. If you had any imaging studies today, such as an X-Ray or CT Scan, these studies will be reviewed later by a radiologist. You will be called if there are important findings that were not identified today, so make sure the contact information you provided at registration is correct. If you received any narcotic pain control medicine today, such as Vicodin, Morphine or Dilaudid, your coordination and judgment may be affected for a number of hours. Please do not drive or operate heavy machinery, and you may want someone to assist you at home. If you were given a prescription for narcotic medication, be aware that it is very addictive- use sparingly and only if necessary. EROS HARTMAN March 30, 2017 18:43
[2017-03-30] MEDS ORDERED: CIPR500T4 PO (18:48)
[2017-03-30 19:03] VITALS: BP 123/75; PULSE 85; RESP 20; TEMP 98
== END 2017-03-30 19:03 | disposition home or self-care (01) ==
LOC: FTE 16:25
DX: R30.0 Dysuria (principal)
CPT/HCPCS: 81001; 81003; 87086; 87591; 99283

== ENCOUNTER 2018-01-11 20:55 | Emergency (ER) | END 2018-01-12 00:15 | disposition home or self-care (01) ==

== ENCOUNTER 2018-06-03 23:25 | Emergency (ER) | END 2018-06-04 02:02 | disposition home or self-care (01) ==

== ENCOUNTER 2019-05-12 09:28 | Emergency (ER) | payer MEDICAID ==
[~2019-05-12] VITALS: Ht 162.6 cm; Wt 79.8 kg
[~2019-05-12 09:28] MED LIST changes: +CIPR500T4 PO; +NAPR-688 PO; +OSEL75CA23 PO; -OSLT75C PO
[2019-05-12 09:35] VITALS: Ht 162.6 cm; Wt 79.8 kg
[2019-05-12] MEDS ORDERED: KETOROLAC 30 MG INJ IV STA (10:28)
[2019-05-12] MEDS ORDERED: morphine 4 MG/ML VIAL IV STA (10:28)
[2019-05-12] MEDS ORDERED: IOHEXOL 300MG/ML 150 ML BTL ONE (11:33)
[2019-05-12] MEDS ORDERED: SOD CHLORIDE 0.9% 100 ML ONE (11:33)
--- NOTE | 2019-05-12 13:20 | ERD ---
ER Documentation Chief Complaint Chief Complaint abdominal pain and nausea x 4 days HPI This is a 54-year-old male that presents to the emergency department complaint abdominal pain and nausea for the past 4 days. The patient indicates that the pain is prominent in the left lower quadrant. It is intermittent. There is no alleviating or exacerbating factors. The pain does not radiate to the back. He denies any hemoptysis hematemesis or melanotic stools. He said no fevers or shaking no chills. Prior to 4 days ago he states he is never had any similar pain. He denies any frequency urgency or dysuria. He denies any recent travel. He said no past surgical history. He did not take anything for analgesic medication. Indicates the pain is 8 out of 10 in intensity. He states it is a sharp shooting pain. ROS All systems reviewed and are negative except as per history of present illness. Medications Home Meds Discontinued Scripts Naproxen* (Naproxen*) 500 Mg Tablet, 500 MG PO BID PRN for PAIN, #10 TAB Prov:CHARISSA GRIFFITH DO 01/11/18 Ciprofloxacin Hcl* (Ciprofloxacin Hcl*) 500 Mg Tablet, 500 MG PO BID for 7 Days, TAB Prov:MINNIEMAYRAEROS 03/30/17 Polyethylene Glycol* (Miralax*) 17 Gm Powd.pack, 17 GM PO DAILY, #7 Prov:GAURAV CASANOVA MD 01/11/17 Ibuprofen* (Motrin*) 600 Mg Tab, 600 MG PO Q6H PRN for PAIN AND OR ELEVATED TEMP, #30 TAB Prov:GAURAV CASANOVA MD 01/11/17 Oseltamivir Phosphate* (Tamiflu*) 75 Mg Capsule, 75 MG PO BID for 5 Days, CAP Prov:GAURAV CASANOVA MD 01/11/17 Allergies Allergies: Coded Allergies: No Known Drug Allergy (Verified Allergy, Mild, 05/12/19) PMhx/Soc History of Surgery: No Anesthesia Reaction: No Hx Neurological Disorder: No Hx Respiratory Disorders: No Hx Cardiac Disorders: No Hx Psychiatric Problems: No Hx Miscellaneous Medical Probl: No Hx Alcohol Use: No Hx Substance Use: No Hx Tobacco Use: No Smoking Status: Never smoker Physical Exam Vitals Vital Signs Date Temp Pulse Resp B/P (MAP) Pulse Ox O2 O2 Flow FiO2 Time Delivery Rate 05/12/19 97.4 55 16 182/102 98 09:35 (128) Physical Exam Constitutional:Well-developed. Well-nourished. Patient appears to be in a s ignificant amount of discomfort secondary to pain HEENT:Normocephalic. Atraumatic.Pupils were equal round reactive to light. Moist mucous membranes.No tonsillar exudates. Neck: No nuchal rigidity. No lymphadenopathy. No posterior cervical spine tenderness or step-offs. Respiratory: Not using accessory muscles of respiration.Lungs were clear to auscultation bilaterally. No rhonchi. No rales. No wheezing. Cardiovascular: Regular rate regular rhythm.No murmurs. No rubs were appreciated.S1, S2 normal. Distal pulses are palpable 2+ bilaterally. GI: Abdomen was soft. Left lower quadrant tenderness. Non Distended. No pulsatile abdominal masses or bruits. No rebound. No guarding. Bowel sounds were present and normal. Muscle skeletal: Full range of motion of both the upper and lower extremities bilaterally.Normal muscle tone.No assymetrical calf tenderness or swelling. Skin: No petechia, no purpura. No lesions on the palms or the soles of the feet. No maculopapular rash. NEURO: Patient was alert, awake, orientated x3.No facial droop. Gait observed and normal with no ataxia.Speech had regular rate and rhythm. No focal neurological deficits. Result Diagram: 05/12/19 1048 05/12/19 1048 Results 24 hrs Laboratory Tests Test 05/12/19 10:48 White Blood Count 4.9 10^3/ul Red Blood Count 5.15 10^6/ul Hemoglobin 14.7 g/dl Hematocrit 43.1 % Mean Corpuscular Volume 83.7 fl Mean Corpuscular Hemoglobin 28.5 pg Mean Corpuscular Hemoglobin Concent 34.1 g/dl Red Cell Distribution Width 13.5 % Platelet Count 227 10^3/UL Mean Platelet Volume 10.4 fl Immature Granulocytes % 0.600 % Neutrophils % 57.3 % Lymphocytes % 31.1 % Monocytes % 8.4 % Eosinophils % 1.8 % Basophils % 0.8 % Nucleated Red Blood Cells % 0.0 /100WBC Immature Granulocytes # 0.030 10^3/ul Neutrophils # 2.8 10^3/ul Lymphocytes # 1.5 10^3/ul Monocytes # 0.4 10^3/ul Eosinophils # 0.1 10^3/ul Basophils # 0.0 10^3/ul Nucleated Red Blood Cells # 0.0 10^3/ul Prothrombin Time 13.3 Sec Prothrombin Time Ratio 1.0 INR International Normalized Ratio 1.00 Activated Partial Thromboplast Time 36.0 Sec Urine Color YELLOW Urine Clarity CLEAR Urine pH 5.0 Urine Specific [place] 1.018 Urine Ketones NEGATIVE mg/dL Urine Nitrite NEGATIVE mg/dL Urine Bilirubin NEGATIVE mg/dL Urine Urobilinogen NEGATIVE mg/dL Urine Leukocyte Esterase NEGATIVE [place]dom[place]/ul Urine Microscopic RBC 1 /HPF Urine Microscopic WBC 0 /HPF Urine Hemoglobin NEGATIVE mg/dL Urine Glucose NEGATIVE mg/dL Urine Total Protein 2+ mg/dl Sodium Level 143 mmol/L Potassium Level 4.3 mmol/L Chloride Level 107 mmol/L Carbon Dioxide Level 29 mmol/L Anion Gap 7 Blood Urea Nitrogen 13 mg/dl Creatinine 0.94 mg/dl Est Glomerular Filtrat Rate mL/min > 60 mL/min Glucose Level 128 mg/dl Calcium Level 9.0 mg/dl Total Bilirubin 0.5 mg/dl Direct Bilirubin 0.00 mg/dl Indirect Bilirubin 0.5 mg/dl Aspartate Amino Transf (AST/SGOT) 37 IU/L Alanine Aminotransferase (ALT/SGPT) 18 IU/L Alkaline Phosphatase 129 IU/L Troponin I < 0.012 ng/ml Total Protein 8.0 g/dl Albumin 4.2 g/dl Globulin 3.80 g/dl Albumin/Globulin Ratio 1.10 Amylase Level 115 U/L Lipase 724 U/L Current Medications Medications Dose Sig/Ujan Start Time Status Last (Trade) Ordered Route PRN Stop Time Admin Dose Reason Admin Morphine 4 mg ONCE STAT 05/12/19 DC 05/12/19 Sulfate IV 10:28 10:52 (morphine) 05/12/19 10:30 Ketorolac 30 mg ONCE STAT 05/12/19 DC 05/12/19 Tromethamine IV 10:28 10:52 (Toradol) 05/12/19 10:31 IV Flush 10 ml STK-MED 05/12/19 DC 05/12/19 (NS 10 ml) ONCE .ROUTE 11:33 11:51 05/12/19 11:34 Sodium 100 ml @ ud STK-MED 05/12/19 DC 05/12/19 Chloride ONCE .ROUTE 11:33 11:52 05/12/19 11:34 Iohexol 150 ml STK-MED 05/12/19 DC 05/12/19 (Omnipaque ONCE .ROUTE 11:33 11:52 300mg/ ml) 05/12/19 11:34 Procedures/MDM This patient presented to the emergency department with abdominal pain and was seen and evaluated by myself. My differential diagnosis included but was not limited to abdominal aortic aneurysm, appendicitis, pancreatitis, perforated peptic ulcer, perforated viscus, Boerhaave's syndrome or visceral pain such as diverticulitis, DKA, esophagitis, hepatitis or bowel obstruction. The patient was placed on a cat breeder, continuous pulse oximetry, and IV access was established by nursing staff. Patient was given intravenous morphine and Zofran for analgesia control. I did obtain a chest radiograph and there is no evidence of free air underneath the diaphragm. Due to the proximity of the patient's pain and physical exam findings a CT scan of the abdomen was ordered and reviewed by myself the radiologist. There is no evidence of perforated viscus but the patient did have diverticulosis which I did feel could be exacerbating his symptoms. He had no leukocytosis or severe electrolyte abnormalities. The patient also had a right inguinal hernia however there is no tenderness over the inguinal region. I was not concerned for incarcerated hernia. I obtained a 12-lead EKG tracing to rule out for atypical microinfarction. 12 Lead EKG tracing ordered and reviewed by myself showed: Sinus bradycardia of 51 bpm and no arrhythmia. UT interval normal. QRS duration normal. No ST segment elevation No ST segment depression. No changes consistent with acute ischemia. The patient was discharged home in fair condition. They were instructed to return to the emergency department at any time if there was any worsening of their condition. The patient stated they would follow up with their PCP in the next 24-48 hours to initiate a suitable medication regimen under the care of their PCP as well as to allow their PCP to monitor any drug reactions. The patient was discharged home with prescriptions after they gave informed consent to the new medication. They were also fully informed by myself on the adverse effects and adverse drug interactions in order to provide adequate safeguards to prevent possible adverse reactions to medications. Departure Diagnosis: Primary Impression: Diverticulosis Condition: SABRINA Mccann MD May 12, 2019 13:20
[2019-05-12] MEDS ORDERED: HYDR-4011 PO (13:22)
[2019-05-12] MEDS ORDERED: DOCU-144 PO (13:22)
[2019-05-12] MEDS ORDERED: LIDOCAINE/MYLANTA 40 ML BTL PO STA (13:58)
[2019-05-12] MEDS ORDERED: ONDANSETRON 4 MG INJ IV STA (13:58)
[2019-05-12] MEDS ORDERED: HYDROmorphONE 1 MG/ML SYG IV STA (13:58)
[2019-05-12] MEDS ORDERED: BELLADONNA/PHENOBARBITAL TAB PO STA (13:58)
[2019-05-12 15:13] VITALS: BP 149/89; PULSE 59; RESP 18
== END 2019-05-12 15:15 | disposition home or self-care (01) ==
LOC: E/R 09:28
DX: K57.30 Diverticulosis of large intestine without perforation or abscess without bleeding (principal)
CPT/HCPCS: 71045; 74177; 80053; 81001; 82150; 83690; 84484; 85025; 85610; 85730; 87086; 93005; J1170; J1885; J2270; J2405; Q9967; Z7610; 96374; 96375